=== PATIENT | male | born 1935 | race Caucasian/White ===

== ENCOUNTER 2022-02-04 14:07 | Emergency (ER) | payer OTHER, BC ==
[2022-02-04 14:26] VITALS: BP 152/72; PULSE 62; RESP 18; TEMP 98.5; BMI 26.6
[2022-02-04 15:30] LABS: BASO % 0.7 % (0-2.0); HEMATOCRIT 35.3 % (35.4-49); HEMOGLOBIN 12.2 GM/dL (11.7-16.9); LYMPH % 29.3 % (8-40); MCH 32.1 pg (25.7-33.7); MCHC 34.7 g/dl (32.0-35.9); MEAN CELL VOLUME 92.5 fl (80-96); MEAN PLT VOLUME 8.6 fl (7.5-11.1); MONO % 7.7 % (3.8-10.2); NEUT % 60.3 % (42.8-82.8); PLATELET COUNT 228 10^3/uL (134-434); RBC 3.82 M/mm3 (4.00-5.60); RDW 15.9 % (11.9-15.9); WHITE BLOOD COUNT 6.4 K/mm3 (4.0-10.0)
[2022-02-04 15:38] LABS: INR 1.08 (0.83-1.09); PROTHROMBIN TIME (PATIENT) 12.4 SEC (9.7-13.0)
[2022-02-04 15:41] LABS: ACTIVATED PTT 22.1 SECONDS (25.2-36.5)
[2022-02-04 16:00] LABS: CALCIUM 8.9 mg/dL (8.5-10.1)
[2022-02-04 16:01] LABS: ALBUMIN 3.6 g/dl (3.4-5.0); BLOOD UREA NITROGEN 10.1 mg/dL (7-18)
[2022-02-04 16:04] LABS: CREATININE 0.8 mg/dL (0.55-1.3)
[2022-02-04 16:06] LABS: BILIRUBIN,TOTAL 0.5 mg/dL (0.2-1); TOT PROT 7.2 g/dl (6.4-8.2)
[2022-02-04 17:44] LABS: URINE APPEARANCE CLEAR; URINE BILIRUBIN NEGATIVE (NEGATIVE); URINE COLOR YELLOW; URINE GLUCOSE (UA) NEGATIVE (NEGATIVE); URINE KETONE NEGATIVE (NEGATIVE); URINE LEUK ESTERASE NEGATIVE (NEGATIVE); URINE NITRITE NEGATIVE (NEGATIVE); URINE PROTEIN TRACE (NEGATIVE); URINE UROBILINOGEN 0.2 mg/dL (0.2-1.0)
== END 2022-02-04 18:45 | disposition home or self-care (01) ==
LOC: EROSA 14:07 → JER 14:07 → EROSA 18:45
DX: R42 Dizziness and giddiness (principal); R19.7 Diarrhea, unspecified
CPT/HCPCS: 36415; 71045-TC-FY; 80053; 81003; 82272; 83690; 84484; 85025; 85610; 85730; 86850; 86900; 86901; 87086; 93005; 93010; 99285-25; C9803-CS; U0003; U0005

== ENCOUNTER 2022-12-19 13:26 | Emergency (ER) | payer OTHER, BC ==
[2022-12-19 13:51] VITALS: RESP 18; TEMP 97; BMI 19.0
[2022-12-19] MEDS ORDERED: ACETAMINOPHEN 1000 MG/100 ML BAG IVPB ONE (14:54)
[2022-12-19] MEDS ORDERED: ACETAMINOPHEN INJECTION 100 ML IVPB ONE (15:08)
[2022-12-19 15:24] LABS: BASO % 0.6 % (0-2.0); EOS % 2.9 % (0-4.5); HEMATOCRIT 37.3 % (35.4-49); HEMOGLOBIN 12.3 GM/dL (11.7-16.9); LYMPH % 25.1 % (8-40); MCHC 32.9 g/dl (32.0-35.9); MEAN CELL VOLUME 94.1 fl (80-96); MEAN PLT VOLUME 9.1 fl (7.5-11.1); MONO % 7.7 % (3.8-10.2); NEUT % 63.7 % (42.8-82.8); PH,URINE 6.5 (5.0-8.0); PLATELET COUNT 316 10^3/uL (134-434); RBC 3.97 M/mm3 (4.00-5.60); RDW 15.1 % (11.9-15.9); URINE APPEARANCE CLEAR; URINE BILIRUBIN NEGATIVE (NEGATIVE); URINE COLOR YELLOW; URINE GLUCOSE (UA) NEGATIVE (NEGATIVE); URINE KETONE NEGATIVE (NEGATIVE); URINE LEUK ESTERASE NEGATIVE (NEGATIVE); URINE NITRITE NEGATIVE (NEGATIVE); URINE PROTEIN NEGATIVE (NEGATIVE); URINE UROBILINOGEN 0.2 mg/dL (0.2-1.0); WHITE BLOOD COUNT 8.1 K/mm3 (4.0-10.0)
[2022-12-19 15:50] LABS: POTASSIUM 4.2 mmol/L (3.5-5.1)
[2022-12-19 15:53] LABS: ALBUMIN 3.3 g/dl (3.4-5.0); BLOOD UREA NITROGEN 14.6 mg/dL (7-18)
[2022-12-19 15:56] LABS: CREATININE 0.7 mg/dL (0.55-1.3)
[2022-12-19 15:57] LABS: BILIRUBIN,TOTAL 0.5 mg/dL (0.2-1); TOT PROT 7.2 g/dl (6.4-8.2)
[2022-12-19 18:21] VITALS: BP 165/70; PULSE 54
[2022-12-19] MEDS ORDERED: AMOX TR/POT CLAV 875MG/125MG TABLETS (FP) PO ONE (19:53)
[2022-12-19] MEDS ORDERED: AZITHROMYCIN 250 MG TABLET PO ONE (19:54)
[2022-12-19] MEDS ORDERED: AMOX TR/POT CLAV 875MG/125MG TABLETS (FP) ONE (20:25)
[2022-12-19] MEDS ORDERED: AZITHROMYCIN 500 MG TABLET ONE (20:25)
== END 2022-12-19 21:08 | disposition home or self-care (01) ==
LOC: JER 13:26
PROC: 3E033NZ Introduction of Analgesics, Hypnotics, Sedatives into Peripheral Vein, Percutaneous Approach (ICD-10-PCS; principal; 2022-12-19)
DX: M54.50 Low back pain, unspecified (principal); J18.9 Pneumonia, unspecified organism; N28.1 Cyst of kidney, acquired; S32.010A Wedge compression fracture of first lumbar vertebra, initial encounter for closed fracture; R39.15 Urgency of urination; Z20.822 Contact with and (suspected) exposure to COVID-19
CPT/HCPCS: 0241U-QW; 36415; 71046-TC-FY; 74177-TC; 80053; 81003; 85025; 87086; 93005; 93010; 99285-25; Q9967